=== PATIENT | female | born 1990 | race Caucasian/White ===

== ENCOUNTER 2017-07-04 14:02 | Emergency (ER) | payer BC ==
[2017-07-04] MEDS ORDERED: IPRATROPIUM/ALBUTEROL 0.5-2.5 MG/3 ML AMPUL NEB ONE ×2 (16:25→17:21)
--- NOTE | 2017-07-04 17:09 | RADIOLOGY REPORT (SQ) ---
EXAM DESCRIPTION: CHEST PA/LAT COMPLETED DATE/TIME: 07/04/2017 5:00 pm REASON FOR STUDY: cough x 2 weeks with chills COMPARISON: None. EXAM PARAMETERS: NUMBER OF VIEWS: two views TECHNIQUE: Digital Frontal and Lateral radiographic views of the chest acquired. RADIATION DOSE: NA LIMITATIONS: none FINDINGS: LUNGS AND PLEURA: No opacities, masses or pneumothorax. No pleural effusion. MEDIASTINUM AND HILAR STRUCTURES: No masses or contour abnormalities. HEART AND VASCULAR STRUCTURES: Heart normal size. No evidence for failure. BONES: No acute findings. HARDWARE: None in the chest. OTHER: No other significant finding. IMPRESSION: NO SIGNIFICANT RADIOGRAPHIC FINDING IN THE CHEST. TECHNICAL DOCUMENTATION: JOB ID: [id number] [employer]- All Rights Reserved
[2017-07-04] MEDS ORDERED: METHYLPREDNISOLONE INJ 125 MG/2 ML SDV IV ONE (17:21)
--- NOTE | 2017-07-04 17:31 | ER Document Report ---
ED General - General Chief Complaint: Cough Stated Complaint: COUGH,WHEEZING,SHORTNESS OF BREATH Time Seen by Provider: 07/04/17 15:54 Mode of Arrival: Ambulatory Information source: Patient TRAVEL OUTSIDE OF THE [place] IN LAST 30 DAYS: No - HPI Notes: 26-year-old female presents today with complaints of cough, nasal congestion, head pain, difficulty breathing for approximately 2 weeks. Denies fevers, reports chills. Denies any cp, sob, n/v/d, abd pain, dysuria and hematuria. no otc meds tried. denies fevers and chills. eating and drinking ok. dry cough. denies any rashes. Denies history of asthma, but has known she is starting to wheeze. Wheezing is becoming worse. nothing makes better, states non-smoker. Eating and drinking without issues. - Related Data Allergies/Adverse Reactions: No Known Allergies Allergy (Verified 07/04/17 14:04) Past Medical History - General Information source: Patient - Social History Smoking Status: Never Smoker Chew tobacco use (# tins/day): No Frequency of alcohol use: Occasional Drug Abuse: None Family History: Reviewed & Not Pertinent Patient has suicidal ideation: No Patient has homicidal ideation: No Renal/ Medical History: Denies: Hx Peritoneal Dialysis Skin Medical History: Denies Hx MRSA Infectious Medical History: Denies: Hx HIV Past Surgical History: Reports: Hx Section - 1 - Immunizations Immunizations up to date: Yes Hx Diphtheria, Pertussis, Tetanus Vaccination: Yes - 2010 Review of Systems - Review of Systems Constitutional: See HPI EENT: See HPI Cardiovascular: No symptoms reported Respiratory: See HPI Gastrointestinal: No symptoms reported Genitourinary: No symptoms reported Musculoskeletal: No symptoms reported Skin: No symptoms reported Neurological/Psychological: No symptoms reported -: Yes All other systems reviewed and negative Physical Exam - Vital signs Vitals: Temp Pulse Resp BP Pulse Ox 98.1 F 65 20 118/70 99 07/04/17 14:21 07/04/17 14:21 07/04/17 14:21 07/04/17 14:21 07/04/17 14:21 Interpretation: Normal - Notes Notes: PHYSICAL EXAMINATION: GENERAL: Well-appearing, well-nourished and in no acute distress. HEAD: Atraumatic, normocephalic. EYES: Pupils equal round and reactive to light, extraocular movements intact, conjunctiva are normal. ENT: Nares patent, oropharynx clear without exudates. Moist mucous membranes. NECK: : tympanic membranes are normal appearing with pearly color, normal- appearing landmarks and normal light reflex. Hearing is grossly intact. noted maxillary tenderness. The nasal mucosa is moist. The septum is midline. There is no evidence of septal hematoma. The turbinates are without abnormality. No obvious abnormalities to the lips. The teeth are unremarkable. The gingivae are without any obvious evidence of infection. The oral mucosa is moist and pink. There are no obvious masses to the hard or soft palate. The uvula is midline. The salivary glands appear unremarkable. The tongue is midline. The posterior pharynx is with erythema but without exudate. The tonsils are normal appearing . wheezes diffusely. rhinorrhea, nasal congestion, allergic shiners bilaterally LUNGS: Breath sounds clear to auscultation bilaterally and equal. No wheezes rales or rhonchi. HEART: Regular rate and rhythm without murmurs ABDOMEN: Soft, nontender, nondistended abdomen. No guarding, no rebound. No masses appreciated. Female : deferred Musculoskeletal: Normal range of motion, no pitting or edema. No cyanosis. NEUROLOGICAL: Cranial nerves grossly intact. Normal speech, normal gait. Normal sensory, motor exams PSYCH: Normal mood, normal affect. SKIN: Warm, Dry, normal turgor, no rashes or lesions noted. Course - Re-evaluation Re-evalutation: Rechecked the patient who is resting comfortably. On re-exam, patient is symptomatically improved. Discussed the results of the labs/radiology as well as the diagnosis at great length. cxr negative for any acute disease. Discussed the need to return to the ER for any new or worsening sx. Patient understands to take the Rx as directed. All questions answered. Patient comfortable with the decision to go home. 07/04/17 17:43 - Vital Signs Vital signs: Temp Pulse Resp BP Pulse Ox 98.1 F 65 20 118/70 99 07/04/17 14:21 07/04/17 14:21 07/04/17 14:21 07/04/17 14:21 07/04/17 14:21 Discharge - Discharge Clinical Impression: Acute bacterial sinusitis, Cough Condition: Good Disposition: HOME, SELF-CARE Instructions: Sinusitis ([facility]), Cough Suppressant & Expectorant Medications Additional Instructions: Sinusitis You have sinusitis, an infection of the sinus cavities of the face. The sinuses are air-filled chambers which open into the inside of the nose. Bacteria and pus fill a sinus, causing pain, drainage, and fever. Sinusitis is treated with antibiotics. Often, expectorants (to thin the sinus mucous) or decongestants (to reduce swelling) are prescribed as well. Healing requires seven to 10 days. Avoid chemical fumes, pollens, dusts, and smoke (especially cigarette smoke ). Keep the air humidified in your bedroom and work area and take plenty of liquids by mouth. This condition can be serious if the infection spreads. If your symptoms worsen, or if you develop severe headache, high fever, stiff neck, or a rash, you must call the doctor or return for re-evaluation. Bronchitis You have acute bronchitis. This disease is an infection or inflammation of the air passageways in your lungs. Symptoms usually include cough, low grade fever, shortness of breath, and wheezing. The cough usually persists for a couple of weeks. Most cases of bronchitis get better without antibiotics. We prescribe antibiotics when we believe bacteria are damaging your airways, or if there's high risk the bronchitis will worsen into pneumonia. Increase your fluid intake. A cool mist humidifier may make your lungs more comfortable. An expectorant (cough medicine that loosens phlegm) can help. If you smoke, STOP!!! Recovery from bronchitis can be somewhat slow, but you should see improvement within a day or two. Repeated episodes of bronchitis may result in lung damage -- for example, chronic bronchitis, recurrent pneumonias, or emphysema. Call the doctor if you develop increasing fever, shortness of breath, chest pain, bloody sputum, or otherwise worsen. If you have not improved at all after several days, contact the physician.
[2017-07-04 18:14] VITALS: BP 134/65
== END 2017-07-04 18:14 | disposition home or self-care (01) ==
LOC: ER 14:02
DX: J01.80 Other acute sinusitis (principal); B96.89 Other specified bacterial agents as the cause of diseases classified elsewhere; R05 Cough; R06.2 Wheezing; R06.02 Shortness of breath; R51 Headache
CPT/HCPCS: 94640 ×2; 99284; 96374; 81025; 71046; J2930; J7620

== ENCOUNTER 2018-06-26 11:15 | Emergency (ER) | payer SELFPAY ==
[2018-06-26] MEDS ORDERED: LOPERAMIDE HCL 2 MG CAPSULE PO ONE (12:41)
[2018-06-26] MEDS ORDERED: ONDANSETRON HCL INJ/PF 4 MG/2 ML SDV IV ONE (12:41)
[2018-06-26] MEDS ORDERED: NORMAL SALINE 1000 ML 1,000 ML IV ONE (12:41)
--- NOTE | 2018-06-26 13:05 | ER Document Report ---
ED Medical Screen (RME) - General TRAVEL OUTSIDE OF THE [place] IN LAST 30 DAYS: No <TRINA SWANSON - Last Filed: 06/26/18 13:03> <GABRIELE FATIMA - Last Filed: 06/26/18 19:18> - General Chief Complaint: Vomiting/Diarrhea Stated Complaint: VOMITING Time Seen by Provider: 06/26/18 12:33 Notes: 27-year-old female who presents today with complaints of vomiting for the last 2 days with associated diarrhea. Patient states she has become lightheaded and dizzy today so she left work to come here. Patient denies any fevers, blood in her stool/vomit, abdominal pain, or sick contacts. I have greeted and performed a rapid initial assessment of this patient. A comprehensive ED assessment and evaluation of the patient, analysis of test results, and completion of the medical decision making process will be conducted by additional ED providers. Review of systems: Constitutional: Lightheadedness. Dizzy. Denies Fevers. Gastrointestinal: Vomiting. Diarrhea. Denies blood in her vomit or stool. Denies abdominal pain. PHYSICAL EXAM GENERAL: Alert, interacts well. No acute distress. HEAD: Normocephalic, atraumatic. EYES: Pupils equal, round, and reactive to light. Extraocular movements intact. ENT: Oral mucosa moist, tongue midline. NECK: Full range of motion. Supple. Trachea midline. ABDOMEN: No tenderness with palpation. LUNGS: No respiratory distress. EXTREMITIES: Moves all 4 extremities spontaneously. NEUROLOGICAL: Alert and oriented x3. Normal speech. PSYCH: Normal affect, normal mood. SKIN: Warm, dry, normal turgor. No rashes or lesions noted. (TRINA SWANSON) - Related Data Allergies/Adverse Reactions: No Known Allergies Allergy (Verified 06/26/18 11:16) Past Medical History - Social History Chew tobacco use (# tins/day): No Frequency of alcohol use: Occasional Drug Abuse: None Renal/ Medical History: Denies: Hx Peritoneal Dialysis Skin Medical History: Denies Hx MRSA Infectious Medical History: Denies: Hx HIV Past Surgical History: Reports: Hx Section - 1 - Immunizations Immunizations up to date: Yes Hx Diphtheria, Pertussis, Tetanus Vaccination: Yes - 2010 <TRINA SWANSON - Last Filed: 06/26/18 13:03> - Vital signs Vitals: Temp Pulse Resp BP Pulse Ox 98.0 F 82 16 132/79 H 98 06/26/18 11:38 06/26/18 11:38 06/26/18 11:38 06/26/18 11:38 06/26/18 11:38 Course - Laboratory Result Diagrams: 06/26/18 13:06 06/26/18 13:06 <GABRIELE FATIMA - Last Filed: 06/26/18 19:18> - Vital Signs Vital signs: Temp Pulse Resp BP Pulse Ox 97.9 F 80 16 114/71 99 06/26/18 15:14 06/26/18 15:14 06/26/18 15:14 06/26/18 15:14 06/26/18 15:14 - Laboratory Laboratory results interpreted by me: 06/26/18 13:06 WBC 11.1 H Seg Neutrophils % 86.9 H Lymphocytes % 9.6 L Monocytes % 2.8 L Absolute Neutrophils 9.7 H Doctor's Discharge <TRINA SWANSON - Last Filed: 06/26/18 13:03> <GABRIELE FATIMA - Last Filed: 06/26/18 19:18> - Discharge Clinical Impression: Nausea vomiting and diarrhea, Abdominal cramping, Elevated blood pressure reading Condition: Good Disposition: HOME, SELF-CARE Instructions: Antinausea Medication ([facility]), Intravenous (IV) Fluids ([facility]), Vomiting ([facility]) Additional Instructions: Your symptoms are likely due to a viral illness and should resolve in the next several days. You can take [id number] loperamide also known as Imodium as needed for diarrhea per box instructions. Continue to stay hydrated with plenty of solution such as Gatorade or Pedialyte. You are being prescribed Zofran to take as needed for nausea and vomiting. Please return if you develop severe abdominal pain, pass out, become unable to tolerate any oral fluids for 12 more hours, or any other symptoms that are concerning to you. Prescriptions: Famotidine [Pepcid 40 mg Tablet] 40 mg PO DAILY #7 tablet Forms: Elevated Blood Pressure
[2018-06-26 13:32] LABS: ABSOLUTE LYMPHOCYTES (AUTO) 1.1 10^3/uL (0.5-4.7); ABSOLUTE MONOCYTES (AUTO) 0.3 10^3/uL (0.1-1.4); ABSOLUTE NEUT (AUTO) 9.7 10^3/uL (1.7-8.2); BASOPHILS % (AUTO) 0.4 % (0-2); EOSINOPHILS % (AUTO) 0.3 % (0-6); HEMATOCRIT 38.8 % (36.0-47.0); HEMOGLOBIN 13.2 g/dL (12.0-15.5); LYMPHOCYTES % (AUTO) 9.6 % (13-45); MEAN CORPUSCULAR HGB CONC 34.2 g/dL (32.0-36.0); MEAN CORPUSCULAR VOLUME 85 fl (80-97); MONOCYTES % (AUTO) 2.8 % (3-13); PLATELET COUNT 288 10^3/uL (150-450); RED BLOOD COUNT 4.57 10^6/uL (3.72-5.28); SEGMENTED NEUTROPHILS % (AUTO) 86.9 % (42-78); TOTAL CELLS COUNTED % (AUTO) 100 %; WHITE BLOOD COUNT 11.1 10^3/uL (4.0-10.5)
[2018-06-26 13:49] LABS: ALANINE AMINOTRANSFERASE 27 U/L (9-52); ALBUMIN 4.7 g/dL (3.5-5.0); ALKALINE PHOSPHATASE 64 U/L (38-126); ANION GAP 7 (5-19); ASPARTATE AMINO TRANSFERASE 26 U/L (14-36); BILIRUBIN,DIRECT 0.2 mg/dL (0.0-0.4); BILIRUBIN,TOTAL 0.4 mg/dL (0.2-1.3); BLOOD UREA NITROGEN 17 mg/dL (7-20); CALCIUM 9.4 mg/dL (8.4-10.2); CARBON DIOXIDE 30 mmol/L (22-30); CHLORIDE 105 mmol/L (98-107); GLUCOSE 109 mg/dL (75-110); POTASSIUM 4.6 mmol/L (3.6-5.0); SODIUM 142.4 mmol/L (137-145); TOTAL PROTEIN 7.5 g/dL (6.3-8.2)
[2018-06-26] MEDS ORDERED: ONDANSETRON ODT 4 MG TAB (6 TAB/ER DISP) PO PRN (14:51)
--- NOTE | 2018-06-26 14:52 | ER Document Report ---
ED General - General Chief Complaint: Vomiting/Diarrhea Stated Complaint: VOMITING Time Seen by Provider: 06/26/18 12:33 Mode of Arrival: Ambulatory Information source: Patient, [facility] Records Notes: 27-year-old female with no reported past medical history presents with complaint of nausea, vomiting and diarrhea that started 2 days prior to arrival. Patient states that she has had 4-5 episodes of nonbloody a day. She also admits to vomiting with any food intake. She denies fever, chills, chest pain, shortness of breath, dysuria, hematuria, vaginal discharge. She denies sick contacts. S he denies recent travel, antibiotic use. TRAVEL OUTSIDE OF THE [place] IN LAST 30 DAYS: No - HPI Onset: Yesterday Onset/Duration: Gradual, Intermittent, Persistent Quality of pain: Cramping Severity: Mild Associated symptoms: Diarrhea, Nausea, Vomiting. denies: Chest pain, Fever, Shortness of breath Exacerbated by: Food Relieved by: Denies Similar symptoms previously: No Recently seen / treated by doctor: No - Related Data Allergies/Adverse Reactions: No Known Allergies Allergy (Verified 06/26/18 11:16) Past Medical History - General Information source: Patient, [facility] Records - Social History Smoking Status: Never Smoker Chew tobacco use (# tins/day): No Frequency of alcohol use: Occasional Drug Abuse: None Lives with: Spouse/Significant other Family History: Reviewed & Not Pertinent Patient has suicidal ideation: No Patient has homicidal ideation: No - Medical History Medical History: Negative Renal/ Medical History: Denies: Hx Peritoneal Dialysis Skin Medical History: Denies Hx MRSA Infectious Medical History: Denies: Hx HIV Past Surgical History: Reports: Hx Section - 1 - Immunizations Immunizations up to date: Yes Hx Diphtheria, Pertussis, Tetanus Vaccination: Yes - 2010 Review of Systems - Review of Systems Notes: REVIEW OF SYSTEMS: CONSTITUTIONAL : Denies fever, chills, or sweats. Denies recent illness. Denies weight loss, recent hospitalizations. EENT: Denies visual changes, eye pain. Denies sore throat, oral lesions, difficulty swallowing. CARDIOVASCULAR: Denies chest pain. Denies palpitations. Denies lower extremity edema. RESPIRATORY: Denies cough. Denies shortness of breath, wheezing. GASTROINTESTINAL: Denies abdominal distention. Denies blood in vomitus, stools, or per rectum. Denies black, tarry stools. Denies constipation. GENITOURINARY: Denies difficulty urinating, painful urination, frequency, blood in urine, or vaginal discharge. MUSCULOSKELETAL: Denies back or neck pain or stiffness. Denies joint pain or swelling. SKIN: Denies rash, lesions or sores. HEMATOLOGIC : Denies easy bruising or bleeding. LYMPHATIC: Denies swollen glands. NEUROLOGICAL: Denies confusion or altered mental status. Denies loss of consciousness. Denies dizziness or lightheadedness. Denies headache. Denies weakness or paralysis. Denies problems difficulty with ambulation, slurred speech. Denies sensory loss, numbness, or tingling. Denies seizures. PSYCHIATRIC: Denies anxiety or stress. Denies depression, suicidal ideation, or homicidal ideation. Denies visual or auditory hallucinations. Physical Exam - Vital signs Vitals: Temp Pulse Resp BP Pulse Ox 98.0 F 82 16 132/79 H 98 06/26/18 11:38 06/26/18 11:38 06/26/18 11:38 06/26/18 11:38 06/26/18 11:38 - Notes Notes: PHYSICAL EXAMINATION: GENERAL: Well-appearing, well-nourished and in no acute distress. HEAD: Atraumatic, normocephalic. EYES: Pupils equal round and reactive to light, extraocular movements intact, conjunctiva are normal. ENT: Nares patent, oropharynx clear without exudates. Moist mucous membranes. NECK: Normal range of motion, supple without lymphadenopathy LUNGS: Breath sounds clear to auscultation bilaterally and equal. No wheezes rales or rhonchi. HEART: Regular rate and rhythm without murmurs ABDOMEN: Soft, nontender, nondistended abdomen. No guarding, no rebound. No masses appreciated. Female : deferred Musculoskeletal: Normal range of motion, no pitting or edema. No cyanosis. NEUROLOGICAL: Cranial nerves grossly intact. Normal speech, normal gait. Normal sensory, motor exams PSYCH: Normal mood, normal affect. SKIN: Warm, Dry, normal turgor, no rashes or lesions noted. Course - Re-evaluation Re-evalutation: Laboratory 06/26/18 06/26/18 06/26/18 13:06 13:06 13:06 WBC 11.1 H RBC 4.57 Hgb 13.2 Hct 38.8 MCV 85 MCH 29.0 MCHC 34.2 RDW 13.0 Plt Count 288 Seg Neutrophils % 86.9 H Lymphocytes % 9.6 L Monocytes % 2.8 L Eosinophils % 0.3 Basophils % 0.4 Absolute Neutrophils 9.7 H Absolute Lymphocytes 1.1 Absolute Monocytes 0.3 Absolute Eosinophils 0.0 Absolute Basophils 0.0 Sodium 142.4 Potassium 4.6 Chloride 105 Carbon Dioxide 30 Anion Gap 7 BUN 17 Creatinine 0.56 Est GFR ( Amer) > 60 Est GFR (Non-Af Amer) > 60 Glucose 109 Calcium 9.4 Total Bilirubin 0.4 Direct Bilirubin 0.2 Neonat Total Bilirubin Not Reportable Neonat Direct Bilirubin Not Reportable Neonat Indirect Bili Not Reportable AST 26 ALT 27 Alkaline Phosphatase 64 Total Protein 7.5 Albumin 4.7 Lipase 184.0 Serum HCG, Qual NEGATIVE Temp Pulse Resp BP Pulse Ox 98.0 F 82 16 132/79 H 98 06/26/18 11:38 06/26/18 11:38 06/26/18 11:38 06/26/18 11:38 06/26/18 11:38 06/26/18 14:48 27-year-old female presented with complaint of nausea vomiting and diarrhea that started 2 days ago. Denies any focal abdominal pain but does admit to some generalized cramping before she has a bowel movement. Patient did receive IV fluids, Zofran prior to my exam. She states that she is feeling much better. She has been able to tolerate fluids. Patient will be provided a Zofran dispense pack to go home since she is concerned that she she will not be able to afford it due to lack of insurance. CBC, CMP, lipase and hCG are unremarkable. Presentation of an overall well-appearing patient in no acute distress with complaints of nausea, vomiting, diarrhea. This is consistent with likely viral gastroenteritis. Patient has no abdominal tenderness on exam and specifically no tenderness in the RLQ, LLQ, RUQ. Overall well hydrated on exam. Able to tolerate oral intake here in the emergency department. Low clinical suspicion for any acute life-threatening etiology based on exam and history including acute cholecystitis, SBO, appendicitis, nephrolithiasis, or pylonephritis. CMP without evidence of acute hepatitis or significant dehydration. Will plan for discharge at this time with return precautions and followup recommendations. Patient was evaluated and treated as appropriate for the patient's presenting symptoms and complaint, with consideration of any critical or life threatening conditions that may be associated with their obtained history and exam as noted above. All results were discussed with patient . Patient provided the opportunity to ask questions, and express concerns. Patient was educated on treatments based on their presumed diagnosis as noted above. At this time we will discharge the patient with return precautions and follow-up recommendations. Verbal discharge instructions given a the bedside. Medication warnings reviewed. Patient is in agreement with this plan and has verbalized understanding of return precautions. After careful consideration I feel that that patient can be safely discharged from the emergency department, they were advised to followup with a primary care physician in 2-3 days. Dictation on this chart was performed using voice recognition software and may result in unintended grammatical, spelling, syntax or errors. 06/26/18 14:54 - Vital Signs Vital signs: Temp Pulse Resp BP Pulse Ox 98.0 F 82 16 132/79 H 98 06/26/18 11:38 06/26/18 11:38 06/26/18 11:38 06/26/18 11:38 06/26/18 11:38 - Laboratory Result Diagrams: 06/26/18 13:06 06/26/18 13:06 Laboratory results interpreted by me: 06/26/18 13:06 WBC 11.1 H Seg Neutrophils % 86.9 H Lymphocytes % 9.6 L Monocytes % 2.8 L Absolute Neutrophils 9.7 H Discharge - Discharge Clinical Impression: Nausea vomiting and diarrhea, Abdominal cramping, Elevated blood pressure reading Condition: Good Disposition: HOME, SELF-CARE Instructions: Antinausea Medication ([facility]), Intravenous (IV) Fluids ([facility]), Vomiting ([facility]) Additional Instructions: Your symptoms are likely due to a viral illness and should resolve in the next several days. You can take [id number] loperamide also known as Imodium as needed for diarrhea per box instructions. Continue to stay hydrated with plenty of solution such as Gatorade or Pedialyte. You are being prescribed Zofran to take as needed for nausea and vomiting. Please return if you develop severe abdominal pain, pass out, become unable to tolerate any oral fluids for 12 more hours, or any other symptoms that are concerning to you. Prescriptions: Famotidine [Pepcid 40 mg Tablet] 40 mg PO DAILY #7 tablet Forms: Elevated Blood Pressure
[2018-06-26 15:16] VITALS: BP 114/71
== END 2018-06-26 15:13 | disposition home or self-care (01) ==
LOC: ER 11:15
DX: R19.7 Diarrhea, unspecified (principal); R11.2 Nausea with vomiting, unspecified; R10.9 Unspecified abdominal pain; R03.0 Elevated blood-pressure reading, without diagnosis of hypertension
CPT/HCPCS: 99284; 96361; 96374; 36415; 83690; 84703; 85025; 80053; J2405; J7030

== ENCOUNTER 2018-11-13 09:12 | Emergency (ER) | payer SELFPAY ==
--- NOTE | 2018-11-13 09:26 | ER Document Report ---
ED Medical Screen (RME) - General Chief Complaint: Abdominal Pain Stated Complaint: ABDOMINAL PAIN Time Seen by Provider: 11/13/18 09:18 Mode of Arrival: Ambulatory Information source: Patient Notes: Patient presents to the emergency department with right-sided pain since Sunday. Reports the pain is getting worse. Denies history of kidney stones. Denies pain with void. Reports she vomited once. Denies other symptoms such as fever vomiting diarrhea. Denies recent trauma/strain. Reports her side feels warm to her. Also reports she did not have her menses for 2 months and then rec ently started on November 08. She is taken several home tests which were all negative. Right side tender to palpation. I have greeted and performed a rapid initial assessment of this patient. A comprehensive ED assessment and evaluation of the patient, analysis of test results and completion of the medical decision making process will be conducted by additional ED providers. Dictation of this chart was performed using voice recognition software; therefore, there may be some unintended grammatical errors. TRAVEL OUTSIDE OF THE [place] IN LAST 30 DAYS: No - Related Data Allergies/Adverse Reactions: No Known Allergies Allergy (Verified 11/13/18 09:14) Past Medical History Renal/ Medical History: Denies: Hx Peritoneal Dialysis Skin Medical History: Denies Hx MRSA Infectious Medical History: Denies: Hx HIV Past Surgical History: Reports: Hx Section - 1 - Immunizations Immunizations up to date: Yes Hx Diphtheria, Pertussis, Tetanus Vaccination: Yes - 2010 Physical Exam - Vital signs Vitals: Temp Pulse Resp BP Pulse Ox 98.7 F 84 16 115/63 97 11/13/18 09:17 11/13/18 09:17 11/13/18 09:17 11/13/18 09:17 11/13/18 09:17 Course - Vital Signs Vital signs: Temp Pulse Resp BP Pulse Ox 98.7 F 84 16 115/63 97 11/13/18 09:17 11/13/18 09:17 11/13/18 09:17 11/13/18 09:17 11/13/18 09:17
[2018-11-13 09:43] LABS: ABSOLUTE EOSINOPHILS # (AUTO) 0.1 10^3/uL (0.0-0.6); ABSOLUTE MONOCYTES (AUTO) 0.5 10^3/uL (0.1-1.4); ABSOLUTE NEUT (AUTO) 3.6 10^3/uL (1.7-8.2); BASOPHILS % (AUTO) 0.7 % (0-2); EOSINOPHILS % (AUTO) 1.9 % (0-6); HEMATOCRIT 38.6 % (36.0-47.0); HEMOGLOBIN 13.2 g/dL (12.0-15.5); LYMPHOCYTES % (AUTO) 31.9 % (13-45); MEAN CORPUSCULAR HEMOGLOBIN 28.7 pg (27.0-33.4); MEAN CORPUSCULAR HGB CONC 34.2 g/dL (32.0-36.0); MEAN CORPUSCULAR VOLUME 84 fl (80-97); MONOCYTES % (AUTO) 8.5 % (3-13); PLATELET COUNT 285 10^3/uL (150-450); RED CELL DISTRIBUTION WIDTH 12.7 % (11.5-14.0); TOTAL CELLS COUNTED % (AUTO) 100 %; WHITE BLOOD COUNT 6.4 10^3/uL (4.0-10.5)
[2018-11-13 10:01] LABS: APPEARANCE,URINE SLIGHTLY-CLOUDY; BILIRUBIN,URINE NEGATIVE (NEGATIVE); COLOR,URINE YELLOW; GLUCOSE, URINE NEGATIVE (NEGATIVE); KETONES,URINE NEGATIVE (NEGATIVE); LEUKOCYTE ESTERASE,URINE NEGATIVE (NEGATIVE); NITRITE,URINE NEGATIVE (NEGATIVE); PROTEIN,URINE NEGATIVE (NEGATIVE); URINE SPECIFIC GRAVITY 1.024; UROBILINOGEN,URINE NEGATIVE mg/dL (<2.0)
[2018-11-13 10:12] LABS: ALANINE AMINOTRANSFERASE 26 U/L (9-52); ALBUMIN 4.3 g/dL (3.5-5.0); ALKALINE PHOSPHATASE 43 U/L (38-126); ANION GAP 7 (5-19); ASPARTATE AMINO TRANSFERASE 22 U/L (14-36); BILIRUBIN,DIRECT 0.2 mg/dL (0.0-0.4); BILIRUBIN,TOTAL 0.4 mg/dL (0.2-1.3); BLOOD UREA NITROGEN 16 mg/dL (7-20); CALCIUM 9.5 mg/dL (8.4-10.2); CARBON DIOXIDE 31 mmol/L (22-30); CHLORIDE 103 mmol/L (98-107); GLUCOSE 74 mg/dL (75-110); LIPASE 231.3 U/L (23-300); POTASSIUM 3.8 mmol/L (3.6-5.0); SODIUM 141.4 mmol/L (137-145); TOTAL PROTEIN 6.8 g/dL (6.3-8.2)
--- NOTE | 2018-11-13 10:27 | ER Document Report ---
Entered by TRINA SWANSON SCRIBE 11/13/18 0946 Acting as scribe for:GIFTY BROOKS MD ED General - General Chief Complaint: Abdominal Pain Stated Complaint: ABDOMINAL PAIN Time Seen by Provider: 11/13/18 09:18 Mode of Arrival: Ambulatory Information source: Patient Notes: 28-year-old female who presents to the emergency department today with complaints of a x5-day history of right-sided abdominal pain. Patient states that she noticed the pain when lying down to go to bed x5 days ago. Patient states the pain comes and goes, but has increased in severity since onset. Patient indicates that the pain radiates around to her right lateral abdomen. Patient states she cannot remember what type of food she had prior to the pain beginning. Patient states her last menstrual period was on 11/07/2018, stating it was "2 months late". TRAVEL OUTSIDE OF THE [place] IN LAST 30 DAYS: No - Related Data Allergies/Adverse Reactions: No Known Allergies Allergy (Verified 11/13/18 09:14) Past Medical History - General Information source: Patient - Social History Smoking Status: Smoker,Current Status Unk Cigarette use (# per day): Yes Chew tobacco use (# tins/day): No Frequency of alcohol use: Occasional Drug Abuse: None Lives with: Family Family History: Reviewed & Not Pertinent Patient has suicidal ideation: No Patient has homicidal ideation: No Past Surgical History: Reports: Hx Section - 1 - Immunizations Immunizations up to date: Yes Hx Diphtheria, Pertussis, Tetanus Vaccination: Yes - 2010 Review of Systems - Review of Systems Constitutional: No symptoms reported EENT: No symptoms reported Cardiovascular: No symptoms reported Respiratory: No symptoms reported Gastrointestinal: See HPI, Abdominal pain Genitourinary: No symptoms reported Female Genitourinary: See HPI, Last menstrual period - 11/07/2018 "x2 months late" Musculoskeletal: No symptoms reported Skin: No symptoms reported Hematologic/Lymphatic: No symptoms reported Neurological/Psychological: No symptoms reported -: Yes All other systems reviewed and negative Physical Exam - Vital signs Vitals: Temp Pulse Resp BP Pulse Ox 98.7 F 84 16 115/63 97 11/13/18 09:17 11/13/18 09:17 11/13/18 09:17 11/13/18 09:17 11/13/18 09:17 - Notes Notes: Physical Exam: General: Alert, appears well. HEENT: Normocephalic. Atraumatic. PERRL. Extraocular movements intact. Oropharynx clear. Neck: Supple. Non-tender. Respiratory: No respiratory distress. Clear and equal breath sounds bilaterally. Cardiovascular: Regular rate and rhythm. Abdominal: Obese. Very minimal right sided abdominal tenderness inferior to the rib margin laterally. No overlying rash. No distension. Normal Bowel Sounds. Back: Non-tender. No deformity or step off. NO CVA tenderness to percussion. Extremities: Moves all four extremities. Upper extremities: Normal inspection. Normal ROM. Lower extremities: Normal inspection. No edema. Normal ROM. Neurological: Normal cognition. AAOx4. Normal speech. Psychological: Normal affect. Normal Mood. Skin: Warm. Dry. Normal color. Course - Re-evaluation Re-evalutation: 11/13/18 12:35 Patient's lab work is unremarkable. Gallbladder ultrasound is unremarkable. CT scan abdomen pelvis with IV contrast unremarkable. There is no clear ex planation for the patient's right upper quadrant abdominal pain other than musculoskeletal. - Vital Signs Vital signs: Temp Pulse Resp BP Pulse Ox 98.7 F 84 16 115/63 97 11/13/18 09:17 11/13/18 09:17 11/13/18 09:17 11/13/18 09:17 11/13/18 09:17 - Laboratory Result Diagrams: 11/13/18 09:30 11/13/18 09:30 Laboratory results interpreted by me: 11/13/18 11/13/18 09:30 09:30 Carbon Dioxide 31 H Glucose 74 L Urine Blood SMALL H - Diagnostic Test Radiology reviewed: Image reviewed, Reports reviewed - Gallbladder ultrasound was unremarkable. CT scan abdomen pelvis with IV contrast is unremarkable. Discharge - Discharge Clinical Impression: Abdominal pain Qualifiers: Abdominal location: right upper quadrant Qualified Code(s): R10.11 - Right upper quadrant pain Nausea and vomiting Qualifiers: Vomiting type: unspecified Vomiting Intractability: non-intractable Qualified Code(s): R11.2 - Nausea with vomiting, unspecified Condition: Stable Disposition: HOME, SELF-CARE Additional Instructions: Abdominal Pain There are many causes of abdominal pain. Pain can mean a serious problem requiring surgery (such as appendicitis). It can also be an innocent problem that goes away on its own (such as a viral infection). Often, time must pass to determine the cause of pain. The physician does not feel that hospitalization is necessary, at present. Things may change within the next 24 hours. Call the doctor or come back for re- examination if any problems occur, such as: (1) Pain that becomes more severe, steady, or becomes concentrated in one specific area. Also, pain that is more severe with movement or coughing. (2) Vomiting that persists or becomes more frequent. (3) Blood in the vomitus, urine, or bowel movements. Blood in the stool may have a tarry or black appearance. (4) Shaking chills or fever greater than 100 degrees F. (5) The abdomen becomes more distended or swollen. (6) Bowel movements cease. (7) Failure to improve as expected. Your lab work, gallbladder ultrasound, and CT scan of the abdomen and pelvis with IV contrast were all unremarkable. The most likely cause of your discomfort would be a muscle strain from a week or more ago.. Occasionally patients will have pain coming from the gallbladder due to poor ga llbladder function. This can be diagnosed with a special nuclear medicine scan called a BJ cortez. For now you should drink plenty of fluids and rest. Take ibuprofen and Tylenol for pain as needed. Follow-up with a local medical doctor for further evaluation if not improving. RETURN TO THE EMERGENCY ROOM IF ANY NEW OR WORSENING SYMPTOMS. Scribe Attestation: 11/13/18 09:55 I personally performed the services described in the documentation, reviewed and edited the documentation which was dictated to the scribe in my presence, and it accurately records my words and actions. 11/13/18 0955 I personally performed the services described in the documentation, reviewed and edited the documentation which was dictated to the scribe in my presence, and it accurately records my words and actions.
--- NOTE | 2018-11-13 10:38 | RADIOLOGY REPORT (SQ) ---
EXAM DESCRIPTION: U/S ABDOMEN LIMITED W/O DOP COMPLETED DATE/TIME: 11/13/2018 10:26 am REASON FOR STUDY: right side pain COMPARISON: None. TECHNIQUE: Dynamic and static grayscale images acquired of the abdomen and recorded on PACS. Additio nal selected color Doppler and spectral images recorded. LIMITATIONS: Bowel gas obscures some organs. FINDINGS: PANCREAS: Unremarkable visualized aspects. LIVER: No masses. Echotexture normal. LIVER VASCULATURE: Normal directional flow of the main portal vein and hepatic veins. GALLBLADDER: No stones. Normal wall thickness. No pericholecystic fluid. ULTRASOUND-DETECTED NOLAND'S SIGN: Negative. INTRAHEPATIC DUCTS AND COMMON DUCT: CBD and intrahepatic ducts normal caliber. No filling defects. INFERIOR VENA CAVA: Normal flow. AORTA: No aneurysm. RIGHT KIDNEY: Normal size measuring 8.8 cm. Normal echogenicity. No solid or suspicious masses. No h ydronephrosis. No calcifications. PERITONEAL AND RIGHT PLEURAL SPACE: No ascites or effusions. OTHER: No other significant findings. IMPRESSION: NORMAL RIGHT UPPER QUADRANT ULTRASOUND. TECHNICAL DOCUMENTATION: JOB ID: [id number] [employer]- All Rights Reserved Reading location - IP/workstation name: [email or web address]
--- NOTE | 2018-11-13 12:01 | RADIOLOGY REPORT (SQ) ---
EXAM DESCRIPTION: CT ABD/PELVIS WITH IV ONLY COMPLETED DATE/TIME: 11/13/2018 11:47 am REASON FOR STUDY: Right abdomen and flank pain x6 days COMPARISON: 11/13/2018 TECHNIQUE: CT scan of the abdomen and pelvis performed using helical scanning technique with dynamic intravenous contrast injection. No oral contrast. Images reviewed with lung, soft tissue, and bone windows. Reconstructed coronal and sagittal MPR images reviewed. Delayed images for evaluation of the urinary system also acquired. All images stored on PACS. All CT scanners at this facility use dose modulation, iterative reconstruction, and/or weight based d osing when appropriate to reduce radiation dose to as low as reasonably achievable (ALARA). [facility]: Dose Right [facility]: CareDose [facility]: Dose Right [facility]: Teradose 4D [facility]: Zenbox CONTRAST TYPE AND DOSE: contrast/concentration: Isovue 350.00 mg/ml; Total Contrast Delivered: 95.0 ml; Total Saline Delivered: 70.0 ml RENAL FUNCTION: None required. The patient is less than 50 years old. RADIATION DOSE: CT Rad equipment meets quality standard of care and radiation dose reduction techniq ues were employed. CTDIvol: NaN - NaN mGy. DLP: 0 mGy-cm.. LIMITATIONS: None. FINDINGS: LOWER CHEST: No significant findings. No nodules or infiltrates. LIVER: Normal size. Hypoattenuation along the falciform ligament likely from accessory venous draina ge. No masses. No dilated ducts. SPLEEN: Normal size. No focal lesions. Splenule noted. PANCREAS: No masses. No significant calcifications. No adjacent inflammation or peripancreatic fluid collections. Pancreatic duct not dilated. GALLBLADDER: No identified stones by CT criteria. No inflammatory changes to suggest cholecystitis. ADRENAL GLANDS: No significant masses or asymmetry. RIGHT KIDNEY AND URETER: No solid masses. No significant calcifications. No hydronephrosis or hyd roureter. LEFT KIDNEY AND URETER: No solid masses. No significant calcifications. No hydronephrosis or hydr oureter. AORTA AND VESSELS: No aneurysm. No dissection. Renal arteries, SMA, celiac without stenosis. RETROPERITONEUM: No retroperitoneal adenopathy, hemorrhage or masses. BOWEL AND PERITONEAL CAVITY: No masses or inflammatory changes. No free fluid or peritoneal masses. APPENDIX: Normal. PELVIS: Unremarkable urinary bladder. Feminine hygiene product within the vaginal canal. 3 cm hypod ense lesion within the left adnexa, likely functional cyst. No adenopathy. ABDOMINAL WALL: No masses. No hernias. BONES: No acute bony abnormality. Bilateral L5 pars defects. No suspicious osseous lesions. OTHER: Obesity. IMPRESSION: 1. No evidence of acute intra-abdominal/ pelvic process. Nephrolithiasis or obstructiv e uropathy. Normal appendix. 2. Bilateral L5 pars defects. TECHNICAL DOCUMENTATION: JOB ID: [id number] Quality ID # [id number]: Final reports with documentation of one or more dose reduction techniques (e.g., Au tomated exposure control, adjustment of the mA and/or kV according to patient size, use of iterative reconstruction technique) 2010 [employer]- All Rights Reserved Reading location - IP/workstation name: [email or web address]
[2018-11-13 12:53] VITALS: BP 123/82
== END 2018-11-13 12:51 | disposition home or self-care (01) ==
LOC: ER 09:12
DX: R10.11 Right upper quadrant pain (principal); R11.2 Nausea with vomiting, unspecified; R10.9 Unspecified abdominal pain; F17.210 Nicotine dependence, cigarettes, uncomplicated
CPT/HCPCS: 36415; 74177; 76705; 80053; 81001; 83690; 84703; 85025; 99284

== ENCOUNTER 2019-09-19 07:49 | Emergency (ER) | payer SELFPAY ==
[2019-09-19] MEDS ORDERED: ONDANSETRON HCL INJ/PF 4 MG/2 ML SDV IV ONE (08:29)
[2019-09-19] MEDS ORDERED: NORMAL SALINE 1000 ML 1,000 ML IV PRN (08:29)
[2019-09-19 08:42] LABS: HEMATOCRIT 36.3 % (36.0-47.0); HEMOGLOBIN 12.6 g/dL (12.0-15.5); MEAN CORPUSCULAR HGB CONC 34.7 g/dL (32.0-36.0); MEAN CORPUSCULAR VOLUME 87 fl (80-97); PLATELET COUNT 235 10^3/uL (150-450); WHITE BLOOD COUNT 12.9 10^3/uL (4.0-10.5)
[2019-09-19] MEDS ORDERED: KETOROLAC TROMETHAMINE INJ/PF 30 MG/1 ML SDV IV ONE (08:42)
--- NOTE | 2019-09-19 08:53 | ER Document Report ---
ED General - General Chief Complaint: Vomiting/Diarrhea Stated Complaint: CHILLS,BODY ACHES,DIARRHEA Time Seen by Provider: 09/19/19 08:23 Primary Care Provider: MILAD MAGAÑA MD [ACTIVE STAFF] - Follow up as needed TRAVEL OUTSIDE OF THE [place] IN LAST 30 DAYS: No - HPI Notes: Patient is a 29-year-old female with no significant past medical history presents complaining having nausea/vomiting/diarrhea that began last night. Patient states that she does have some chills and body ache as well. She has had decreased p.o. intake. She is still urinating normally otherwise. No vaginal discharge, odor, or bleeding. Denies . Denies drug allergies. No known exposure to coronavirus or persons under investigation. Denies any headache, fever, neck pain, URI, sore throat, chest pain, palpitations, syncope, cough, shortness of breath, wheeze, dyspnea, abdominal pain, urinary retention, dysuria, hematuria, or rash. - Related Data Allergies/Adverse Reactions: No Known Allergies Allergy (Verified 09/19/19 08:06) Past Medical History - Social History Smoking Status: Never Smoker Chew tobacco use (# tins/day): No Frequency of alcohol use: Occasional Drug Abuse: None Family History: Reviewed & Not Pertinent Patient has suicidal ideation: No Patient has homicidal ideation: No Renal/ Medical History: Denies: Hx Peritoneal Dialysis Skin Medical History: Denies Hx MRSA Infectious Medical History: Denies: Hx HIV Past Surgical History: Reports: Hx Section - 1 - Immunizations Immunizations up to date: Yes Hx Diphtheria, Pertussis, Tetanus Vaccination: Yes - 2010 Review of Systems - Review of Systems -: Yes All other systems reviewed and negative Physical Exam - Vital signs Vitals: Temp Pulse Resp BP Pulse Ox 99.7 F 95 18 129/71 H 95 09/19/19 07:53 09/19/19 07:53 09/19/19 07:53 09/19/19 07:53 09/19/19 07:53 - Notes Notes: PHYSICAL EXAMINATION: GENERAL: Well-appearing, well-nourished and in no acute distress. HEAD: Atraumatic, normocephalic. EYES: Pupils equal round and reactive to light, extraocular movements intact, sclera anicteric, conjunctiva are normal. ENT: Nares patent and without discharge. oropharynx clear without exudates. No tonsilar hypertrophy or erythema. Moist mucous membranes. NECK: Normal range of motion, supple without lymphadenopathy LUNGS: Breath sounds clear to auscultation bilaterally and equal. No wheezes rales or rhonchi. HEART: Regular rate and rhythm without murmurs, rubs, gallops. ABDOMEN: Soft, nontender, nondistended abdomen. No guarding, no rebound. Normal bowel sounds present. No CVA tenderness bilaterally. Jimenez neg. No tenderness to the lower abd or at [place]. Musculoskeletal: FROM to passive/active. Strength 5+/5. Extremities: No cyanosis, clubbing, or edema b/l. Peripheral pulses 2+. Capillary refill less than 3 seconds. NEUROLOGICAL: Normal speech, normal gait. PSYCH: Normal mood, normal affect. SKIN: Warm, Dry, normal turgor, no rashes or lesions noted. Course - Re-evaluation Re-evalutation: 09/19/19 09:39 Patient is an afebrile, well-hydrated, 29-year-old female who presents with nausea/vomiting/diarrhea, suspect viral. Vitals are acceptable without sign ificant tachycardia, tachypnea, or hypoxia. PE is otherwise unremarkable. Patient's abdomen is soft nontender throughout. Labs are acceptable. Patient was given medicines and fluids. She has not had any emesis or diarrhea throughout her stay. No further work-up warranted at this time. Low arian picion/risk for acute appendicitis, bowel obstruction, acute cholecystitis, acute cholangitis, perforated diverticulitis, incarcerated hernia, pancreatitis, perforated ulcer, peritonitis, sepsis, pelvic inflammatory disease, ectopic , tubo-ovarian abscess, ovarian torsion, or other systemic emergent condition at this time. Patient is aware that her condition can change from initial presentation and she needs to monitor symptoms closely and seek medical attention if any acute changes. Conservative measures otherwise for symptoms. Recheck with your PCM in 2-3 days. Consider consult with a air conditioning insulation installer. Return to the ED with any worsening/concerning symptoms otherwise as reviewed in discharge. Patient is in agreement. - Vital Signs Vital signs: Temp Pulse Resp BP Pulse Ox 99.7 F 95 18 129/71 H 95 09/19/19 07:53 09/19/19 07:53 09/19/19 07:53 09/19/19 07:53 09/19/19 07:53 - Laboratory Result Diagrams: 09/19/19 08:23 09/19/19 08:23 Laboratory results interpreted by me: 09/19/19 09/19/19 09/19/19 08:23 08:23 08:56 WBC 12.9 H Seg Neuts % (Manual) 86 H Lymphocytes % (Manual) 7 L Abs Neuts (Manual) 11.1 H Sodium 134.9 L Glucose 129 H Urine Blood MODERATE H Urine Urobilinogen 2.0 H Discharge - Discharge Clinical Impression: Nausea vomiting and diarrhea Condition: Stable Disposition: HOME, SELF-CARE Instructions: Diarrhea, Nonspecific ([facility]), Vomiting ([facility]) Additional Instructions: Maintain adequate fluid and food intake Mecca diet (B.R.A.T.) Bananas, rice, apples, toast, etc Zofran as needed tylenol if needed Monitor for any worsening symptoms Make sure you are staying hydrated enough to urinate and have normal BM's Recheck with your PCM in 2-3 days Consider consult with Gastroenterology for ongoing/worsening symptoms Return to the ED with any worsening symptoms and/or development of fever, headache, chest pain, palpitations, syncope, shortness of breath, trouble breathing, abdominal pain, n/v/d, blood in stool/urine, weakness, or other worsening symptoms that are concerning to you. Prescriptions: Ondansetron [Zofran Odt 4 mg Tablet] 1 - 2 tab PO Q4H PRN #15 tab.rapdis PRN Reason: For Nausea/Vomiting Forms: Elevated Blood Pressure, Return to Work Referrals: MILAD MAGAÑA MD [ACTIVE STAFF] - Follow up as needed
[2019-09-19 09:10] LABS: ALBUMIN 4.2 g/dL (3.5-5.0); ALKALINE PHOSPHATASE 62 U/L (38-126); ANION GAP 11 (5-19); ASPARTATE AMINO TRANSFERASE 27 U/L (14-36); BILIRUBIN,DIRECT 0.2 mg/dL (0.0-0.4); BILIRUBIN,TOTAL 0.5 mg/dL (0.2-1.3); BLOOD UREA NITROGEN 14 mg/dL (7-20); CALCIUM 8.6 mg/dL (8.4-10.2); CARBON DIOXIDE 26 mmol/L (22-30); CHLORIDE 98 mmol/L (98-107); GLUCOSE 129 mg/dL (75-110); POTASSIUM 3.8 mmol/L (3.6-5.0)
[2019-09-19 09:17] LABS: APPEARANCE,URINE CLEAR; BILIRUBIN,URINE NEGATIVE (NEGATIVE); COLOR,URINE YELLOW; GLUCOSE, URINE NEGATIVE (NEGATIVE); KETONES,URINE NEGATIVE (NEGATIVE); PROTEIN,URINE NEGATIVE (NEGATIVE); URINE SPECIFIC GRAVITY 1.013
[2019-09-19 09:18] LABS: A TYPE INFLUENZA AG NEGATIVE (NEGATIVE); B INFLUENZA AG NEGATIVE (NEGATIVE)
[2019-09-19 09:20] LABS: ABSOLUTE MONOCYTES # (MANUAL) 0.8 10^3/uL (0.1-1.4); BASOPHILS % (MANUAL) 0 % (0-2); EOSINOPHILS % (MANUAL) 0 % (0-6); LYMPHOCYTES % (MANUAL) 7 % (13-45); MONOCYTES % (MANUAL) 6 % (3-13); SEGMENTED NEUTROPHILS % (MAN) 86 % (42-78); TOTAL CELLS COUNTED 100
[2019-09-19 09:29] LABS: RBC MORPHOLOGY COMMENT NORMO-CYTIC/CHROMIC
[2019-09-19 09:30] LABS: PLATELET COMMENT ADEQUATE
[2019-09-19 09:58] VITALS: BP 116/63
== END 2019-09-19 10:10 | disposition home or self-care (01) ==
LOC: ER 07:49
DX: R11.2 Nausea with vomiting, unspecified (principal); R19.7 Diarrhea, unspecified; M79.10 Myalgia, unspecified site
CPT/HCPCS: 99284; 96361; 96374; 96375; 36415; 83690; 85025; 81025; 80053; 81001; 87804; J1885; J2405; J7030

== ENCOUNTER 2020-05-12 12:20 | Outpatient (CLI) | payer MEDICAID ==
[2020-05-12 13:06] LABS: BACTERIA (WET MOUNT) 4+ BACTERIA SEEN; EPITHELIALS (WET MOUNT) 4+ EPITHELIALS SEEN; RBCS (WET MOUNT) NO RBCS SEEN; T.VAGINALIS (WET MOUNT) NO TRICHOMONAS SEEN; WBCS (WET MOUNT) 2+ WBCS SEEN; YEAST (WET MOUNT) NO YEAST SEEN
[2020-05-12 13:19] LABS: APPEARANCE,URINE CLOUDY; BILIRUBIN,URINE NEGATIVE (NEGATIVE); COLOR,URINE YELLOW; GLUCOSE, URINE NEGATIVE (NEGATIVE); KETONES,URINE NEGATIVE (NEGATIVE); LEUKOCYTE ESTERASE,URINE NEGATIVE (NEGATIVE); NITRITE,URINE NEGATIVE (NEGATIVE); PROTEIN,URINE NEGATIVE (NEGATIVE); URINE SPECIFIC GRAVITY 1.013; UROBILINOGEN,URINE NEGATIVE mg/dL (<2.0)
[2020-05-12 13:37] LABS: URINE AMPHETAMINES SCREEN NEGATIVE; URINE BARBITURATES SCREEN NEGATIVE; URINE BENZODIAZEPINES SCREEN NEGATIVE; URINE COCAINE SCREEN NEGATIVE; URINE MARIJUANA (THC) SCREEN NEGATIVE; URINE METHADONE SCREEN NEGATIVE; URINE PHENCYCLIDINE SCREEN NEGATIVE
--- NOTE | 2020-05-12 16:08 | RADIOLOGY REPORT (SQ) ---
EXAM DESCRIPTION: U/S PROFILE W/O STRESS IMAGES COMPLETED DATE/TIME: 05/12/2020 3:37 pm REASON FOR STUDY: nonreactive NST @ 33w1d COMPARISON: None. TECHNIQUE: Limited frausto-scale realtime and static images of the fetus to measure specified parameter s. LIMITATIONS: None. FINDINGS: HEART RATE: 153 beats per minute. BREATHING MOVEMENT: 2 points. MOVEMENT: 2 points. POSTURE AND TONE: 2 points. QUALITATIVE ADRIAN: 2 points. OTHER: ADRIAN is 11.5 cm. Heterogeneous attenuation posterior to the anterior positioned placenta is th ere a clinical history of abruption? This may represent prominent retroperitoneal complex. IMPRESSION: BIOPHYSICAL PROFILE: 02/06. Trimester of : Third - 28 weeks to delivery COMMENT: BREATHING MOVEMENTS: 2 POINTS: PRESENT 0 POINTS: ABSENT MOTION: 2 POINTS: PRESENT 0 POINTS: ABSENT TONE: 2 POINTS: PRESENT 0 POINTS: ABSENT AMNIOTIC FLUID VOLUME: 2 POINTS: LARGEST POCKET GREATER THAN 2 CM DEPTH. 0 POINTS: NO POCKET OF 2 CM. TECHNICAL DOCUMENTATION: JOB ID: [id number] 2010 [employer]- All Rights Reserved Reading location - IP/workstation name: [email or web address]
== END 2020-05-12 16:32 | disposition home or self-care (01) ==
LOC: LC 12:20
PROVIDERS: ATTEND Obstetrics & Gynecology
DX: O26.899 Other specified pregnancy related conditions, unspecified trimester (principal); Z3A.33 33 weeks gestation of pregnancy
CPT/HCPCS: 59025; 76819; 80307; 81001; 84112; 87210

== ENCOUNTER 2020-06-09 10:37 | Outpatient (CLI) | payer MEDICAID | END 2020-06-09 13:34 | disposition home or self-care (01) | LOC: LC 10:37 | PROVIDERS: ATTEND Obstetrics & Gynecology Gynecology | DX: O36.8130 Decreased fetal movements, third trimester, not applicable or unspecified (principal); Z3A.37 37 weeks gestation of pregnancy | CPT/HCPCS: 59025 ==

== ENCOUNTER 2020-06-11 14:45 | Outpatient (CLI) | payer MEDICAID ==
--- NOTE | 2020-06-11 16:43 | RADIOLOGY REPORT (SQ) ---
EXAM DESCRIPTION: U/S PROFILE W/O STRESS IMAGES COMPLETED DATE/TIME: 06/11/2020 4:25 pm REASON FOR STUDY: non reactive NST, needs BPP, decreased FM COMPARISON: 05/12/2020 TECHNIQUE: Limited frausto-scale realtime and static images of the fetus to measure specified parameter s. LIMITATIONS: None. FINDINGS: HEART RATE: 132 beats per minute. ADRIAN: 10.6 cm. MVP: 2 cm. BREATHING MOVEMENT: 2 points. MOVEMENT: 2 points. POSTURE AND TONE: 2 points. QUALITATIVE ADRIAN: 2 points. OTHER: No other significant finding. IMPRESSION: BIOPHYSICAL PROFILE: 02/06. Trimester of : Third - 28 weeks to delivery COMMENT: BREATHING MOVEMENTS: 2 POINTS: PRESENT 0 POINTS: ABSENT MOTION: 2 POINTS: PRESENT 0 POINTS: ABSENT TONE: 2 POINTS: PRESENT 0 POINTS: ABSENT AMNIOTIC FLUID VOLUME: 2 POINTS: LARGEST POCKET GREATER THAN 2 CM DEPTH. 0 POINTS: NO POCKET OF 2 CM. TECHNICAL DOCUMENTATION: JOB ID: [id number] 2010 [employer]- All Rights Reserved Reading location - IP/workstation name: [email or web address]
== END 2020-06-11 16:44 | disposition home or self-care (01) ==
LOC: LC 14:45
PROVIDERS: ATTEND Student in an Organized Health Care Education/Training Program
DX: O36.8130 Decreased fetal movements, third trimester, not applicable or unspecified (principal); Z3A.37 37 weeks gestation of pregnancy; Z86.19 Personal history of other infectious and parasitic diseases
CPT/HCPCS: 59025; 76819

== ENCOUNTER 2020-06-15 17:55 | Inpatient (IN) | payer OTHER, MEDICAID ==
[2020-06-15 18:48] LABS: APPEARANCE,URINE SLIGHTLY-CLOUDY; BILIRUBIN,URINE NEGATIVE (NEGATIVE); COLOR,URINE YELLOW; GLUCOSE, URINE NEGATIVE (NEGATIVE); KETONES,URINE NEGATIVE (NEGATIVE); LEUKOCYTE ESTERASE,URINE NEGATIVE (NEGATIVE); NITRITE,URINE NEGATIVE (NEGATIVE); PROTEIN,URINE 30 mg/dL (NEGATIVE); URINE SPECIFIC GRAVITY 1.021
[2020-06-15 19:07] LABS: URINE AMPHETAMINES SCREEN NEGATIVE; URINE BARBITURATES SCREEN NEGATIVE; URINE BENZODIAZEPINES SCREEN NEGATIVE; URINE COCAINE SCREEN NEGATIVE; URINE MARIJUANA (THC) SCREEN NEGATIVE; URINE METHADONE SCREEN NEGATIVE; URINE PHENCYCLIDINE SCREEN NEGATIVE
[2020-06-16] MEDS ORDERED: RINGERS SOLUTION,LACTATED 1,000 ML IV PRN ×3 (01:36→03:48)
[2020-06-16] MEDS ORDERED: ACETAMINOPHEN 1,000 MG/100 ML RTUPB IV ONE (01:46)
[2020-06-16] MEDS ORDERED: OXYTOCIN 10 UNIT/ML VIAL ONE (01:46)
[2020-06-16] MEDS ORDERED: OXYTOCIN/0.9 % SODIUM CHLORIDE 30 UNIT/500 ML RTUINJ ONE (01:46)
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
[2020-06-16 02:04] LABS: ABSOLUTE BASOPHILS # (AUTO) 0.2 10^3/uL (0.0-0.2); ABSOLUTE EOSINOPHILS # (AUTO) 0.1 10^3/uL (0.0-0.6); ABSOLUTE LYMPHOCYTES (AUTO) 2.8 10^3/uL (0.5-4.7); ABSOLUTE MONOCYTES (AUTO) 0.5 10^3/uL (0.1-1.4); ABSOLUTE NEUT (AUTO) 7.3 10^3/uL (1.7-8.2); BASOPHILS % (AUTO) 1.8 % (0-2); EOSINOPHILS % (AUTO) 0.9 % (0-6); HEMATOCRIT 34.7 % (36.0-47.0); HEMOGLOBIN 12.1 g/dL (12.0-15.5); LYMPHOCYTES % (AUTO) 25.6 % (13-45); MEAN CORPUSCULAR HEMOGLOBIN 31.2 pg (27.0-33.4); MEAN CORPUSCULAR HGB CONC 34.9 g/dL (32.0-36.0); MEAN CORPUSCULAR VOLUME 90 fl (80-97); PLATELET COUNT 208 10^3/uL (150-450); RED BLOOD COUNT 3.87 10^6/uL (3.72-5.28); SEGMENTED NEUTROPHILS % (AUTO) 66.7 % (42-78); TOTAL CELLS COUNTED % (AUTO) 100 %; WHITE BLOOD COUNT 10.9 10^3/uL (4.0-10.5)
[2020-06-16] MEDS ORDERED: CEFAZOLIN 2 GM/D5W RTU 2 GM/50 ML RTUPB IV ONE ×2 (02:10→02:20)
[2020-06-16] MEDS ORDERED: CITRIC ACID/SODIUM CITRATE ORAL SOLN 15 ML UDCUP ONE (02:19)
[2020-06-16] MEDS ORDERED: MEASLES,MUMPS&RUBELLA VACC/PF 0.5 ML VIAL SUBCUT PRN (03:48)
[2020-06-16] MEDS ORDERED: ACETAMINOPHEN 1,000 MG/100 ML RTUPB IV PRN (03:48)
[2020-06-16] MEDS ORDERED: DIPH/PERTUSS(ACELL)/TETANUS VAC/PF 0.5 ML SYR (>=10YO) IM PRN (03:48)
[2020-06-16] MEDS ORDERED: PROMETHAZINE HCL INJ 25 MG/1 ML VIAL IV PRN (03:48)
[2020-06-16] MEDS ORDERED: SIMETHICONE 80 MG TAB.CHEW PO PRN (03:48)
[2020-06-16] MEDS ORDERED: OXYTOCIN/0.9 % SODIUM CHLORIDE 30 UNIT/500 ML RTUINJ IV PRN (03:48)
[2020-06-16] MEDS ORDERED: ACETAMINOPHEN 325 MG TABLET PO PRN (03:48)
[2020-06-16] MEDS ORDERED: OXYCODONE-ACETAMINOPHEN 5-325 MG TABLET PO PRN (03:48)
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
[2020-06-16] MEDS ORDERED: HYDROMORPHONE HCL INJ/PF 2 MG/ML AMPULE ONE (04:28)
--- NOTE | 2020-06-16 05:28 | Birth Certificate Data ---
Cert Data Datetime Report Generated by [facility]: 06/16/2020 05:28 CERTIFICATE DATA Delivery Provider: Santa Corbin MD (05/12/2020 12:33:Maira Raman RN) 48a. Number of Prev Live Births: 2 (05/12/2020 12:33:ALEX Jin) 48b. Now Livin (05/12/2020 12:33:Yoli Luu RN) 48c. Live Births Now : 0 (05/12/2020 12:33:QS system process) 48d. Date of Last Live : 04/02/2014 00:00 (05/12/2020 12:33:ALEX Jin) 48e. Losses: 0 (Annotations: Data stored by [facility] on behalf of user) (05/12/2020 12:33:ALEX Jin) RISK FACTORS IN THIS 49a. Diabetes: No (05/12/2020 12:33:Herminia Bellavance, RNC) 49b. Hypertension: No (05/12/2020 12:33:Herminia Bellavance, RNC) 49c. Previous Births: 0 (05/12/2020 12:33:Yoli Luu RN) 49d. Stillborns: No (05/12/2020 12:33:Herminia Bellavance, RNC) 49d. IUGR: No (05/12/2020 12:33:Herminia Bellavance, RNC) 49e. Infertility Treatment: No (05/12/2020 12:33:Herminia Bellavance, RNC) 49f. Previous Cesareans: 2 (05/12/2020 12:33:Herminia Bellavance, RNC) Mother's Height 50b. Height Inches: 63 (06/15/2020 18:43:QS system process) Mother's Weight 51a. Pre- Weight (lbs): 180 (05/12/2020 12:33:Maira Raman RN) 51b. Weight at Delivery (lbs): 220 (06/15/2020 18:43:QS system process) Infections Present/Treated 53a. Gonorrhea: No (05/12/2020 12:33:ALEX Jin) Results this Hospital Visit : Negative (05/12/2020 12:33:Yoli Luu RN) 53b. Syphilis: No (05/12/2020 12:33:ALEX Jin) 53c. Chlamydia: No (05/12/2020 12:33:ALEX Jin) Results this Hospital Visit: Negative (05/12/2020 12:33:Yoli Luu RN) 53d. Hepatitis B: No (05/12/2020 12:33:ALEX Jin) Results this Hospital Visit: Negative (05/12/2020 12:33:Yoli Luu RN) 53h. Mother Tested for HBsAG: Yes (05/12/2020 12:33:Maira Raman RN) 53j. Test Result: Negative (05/12/2020 12:33:Yoli Luu RN) Obstetric Procedures 54a, b, c. Obstetric Procedures: Ultrasound (05/12/2020 12:33:Herminia Bellavance, RNC) Cigarette Smoking Cigarette Smoking: Former Smoker. [id number] (05/12/2020 12:33:Maira Raman RN) 55a. 3 Months Before Preg - Ci (05/12/2020 12:33:Maira Raman RN) 55b. 1st Trimester of Preg- Ci (05/12/2020 12:33:Maira Raman RN) 55c. 2nd Trimester of Preg- Ci (05/12/2020 12:33:Maira Raman RN) 55d. 3rd Trimester of Preg- Ci (05/12/2020 12:33:Maira Raman RN) Onset of Labor 56a. PROM >12 Hrs: 0.03 (05/12/2020 12:33:QS system process) 57a. Induction of Labor: N/A (05/12/2020 12:33:Maira Raman RN) 57c. Non-Vertex Presentation A: Vertex (05/12/2020 12:33:Maira Raman RN) 57d. Steroids - Lung Mat: None (05/12/2020 12:33:Maira Raman RN) 57d. Steroids - Lung Mat: Not Applicable (05/12/2020 12:33:Maira Raman RN) 57f. Mat [place] or Temp >100.4: 98.2 (05/12/2020 12:33:Maira Raman RN) 57g. Moderate/Heavy Meconium: Clear (05/12/2020 12:33:Maira Raman RN) 57h. Intolerance of Labor: Nonreassuring Status (05/12/2020 12:33:Maira Raman RN) : Repeat Elective (05/12/2020 12:33:Maira Raman RN) 57i. Epidural/Spinal Anesthesia: None (05/12/2020 12:33:Maira Raman RN) Method of Delivery 58a. Forceps - Unsuccessful A: N/A (05/12/2020 12:33:Maira Raman RN) 58b. Vacuum - Unsuccessful A: N/A (05/12/2020 12:33:Maira Raman RN) 58c. Presentation at 58c. Presentation at - A : Vertex (05/12/2020 12:33:Maira Raman RN) 58c. Presentation at - A : N/A (05/12/2020 12:33:Maira Raman RN) 58c. Presentation at - A : Cephalic (06/16/2020 00:31:Herminia Crews [facility]) Final Route and Method of Del 58d. Baby A Route/Delivery: (05/12/2020 12:33:JEANE Arcos) 58e. Trial of Labor Attempted: No (05/12/2020 12:33:Maira Raman RN) 58e. Trial of Labor Attempted A: N/A (05/12/2020 12:33:Hill Stout RN) 58e. Trial of Labor Attempted B: N/A (05/12/2020 12:33:Maira Raman RN) Maternal Morbidity 59b. 3rd or 4th Degree Lacs: None (05/12/2020 12:33:Maira Raman RN) Birthweight Baby A: 2510 (05/12/2020 12:33:Latasha Recio RN) 60a. Pounds : 5 (05/12/2020 12:33:QS system process) 60b. Ounces: 9 (05/12/2020 12:33:QS system process) 61. GA at Delivery Baby A: 38.1 (05/12/2020 12:33:Angelito Adams HEALTH SAFETY COORDINATOR) : Early Term- 37- 38.6 Weeks (05/12/2020 12:33:QS system process) 62a. 5 Minute Baby A: 9 (05/12/2020 12:33:QS system process)
--- NOTE | 2020-06-16 05:28 | Delivery Summary ---
Del Sum A-C Datetime Report Generated by CPN: 06/16/2020 05:28 DELIVERY PERSONNEL DELIVERY PERSONNEL: [id number] Delivery Doctor:: Santa Corbin MD UPSTREAM BIOMANUFACTURING TECHNICIAN:: Meliza Chambers CRNA Cathode Washer:: Maira Raman RN Nursery Nurse:: Latasha Recio RN Vehicle Modification Technician/LABORER CONSTRUCTION OR LEAK GANG: [facility] [place] Vehicle Modification Technician/LABORER CONSTRUCTION OR LEAK GANG: Valdo Mejias, SAP PI DEVELOPER MATERNAL INFORMATION Delivery Anesthesia: Spinal Medications After Delivery: Pitocin Bolus-Please Comment Delivery QBL: 360 Maternal Complications: None LABOR SUMMARY EDC: 06/29/2020 00:00 No. Babies in Womb: 1 Attempted: No Labor Anesthesia: None LABOR INFORMATION Reason for Induction: Not Applicable Oxytocin: N/A Group B Beta Strep: positive Antibiotics # of Doses: 0 Steroids Given: None Reason Steroids Not Administered: Not Applicable MEMBRANES Membranes Rupture Method: Artificial Rupture of Membranes: 06/16/2020 03:14 Length of Rupture (hr): 0.03 Amniotic Fluid Color: Clear Amniotic Fluid Amount: Small Amniotic Fluid Odor: Normal STAGES OF LABOR Stage 3 hr: 0 Stage 3 min: 1 VAGINAL DELIVERY Episiotomy: None Laceration #1: None Laceration Extension #1: N/A Laceration Repair: Not Applicable Sponge Count Correct: N/A Sharps Count Correct: N/A CSECTION DELIVERY Primary Indication: Nonreassuring Status Secondary Indication: Repeat Elective CSection Urgency: Non-Scheduled CSection Incidence: Repeat Labor: No Labor Elective: N/A CSection Incision: Lower Uterine Transverse BABY A INFORMATION Delivery Date/Time: 06/16/2020 03:16 Method of Delivery: Nurse Controlled Delivery: No Born in Route : No : N/A Forceps: N/A Vacuum Extraction: N/A Shoulder Dystocia : No PRESENTATION/POSITION BABY A Presentation: Cephalic Cephalic Presentation: Vertex Breech Presentation: N/A PLACENTA INFORMATION BABY A Placenta Delivery Time : 06/16/2020 03:17 Placenta Method of Delivery: Manual Removal Placenta Status: Delivered SCORES BABY A Heart Rate 1 min: >100 bpm Resp Effort 1 min: Good Cry Reflex Irritability 1 min: Cough or Sneeze or Pulls Away Muscle Tone 1 min: Active Motion Color 1 min: Blue/Pale Resuscitation Effort 1 min: Tactile Stimulation SCORE 1 MIN: 8 Heart Rate 5 min: >100 bpm Resp Effort 5 min: Good Cry Reflex Irritability 5 min: Cough or Sneeze or Pulls Away Muscle Tone 5 min: Active Motion Color 5 min: Body [place], Extremities Blue SCORE 5 MIN: 9 INFORMATION BABY A Gestational Age at Delivery: 38.1 Gestational Status: Early Term- 37- 38.6 Weeks Outcome : Liveborn Infant Condition : Stable Sex: Female IDENTIFICATION BABY A Verification Date/Time: 06/16/2020 03:16 ID Band Number: [id number] Mother's Name Verified: Yes Infant RN Verifying Infant: Kendra Raman, RN/S. Tabitha, RN WEIGHT/LENGTH BABY A Infant Birthweight (gm): 2510 Infant Weight (lb): 5 Infant Weight (oz): 9 Infant Length (in): 18.75 Length (cm): 47.63 CORD INFORMATION BABY A No. Cord Vessels: 3 Nuchal Cord : N/A Cord Blood Taken: Yes-For Storage (Mom's Blood type +) BABY B INFORMATION : N/A
[2020-06-16] MEDS: KETOROLAC TROMETHAMINE INJ/PF 30 MG/1 ML SDV IV SCH ×3 (06:30→21:00)
[2020-06-16] MEDS: OXYCODONE-ACETAMINOPHEN 5-325 MG TABLET PO PRN ×3 (08:18→20:51)
[2020-06-16] MEDS: DOCUSATE SODIUM 100 MG CAPSULE PO SCH ×2 (10:00→18:10)
[2020-06-16] MEDS: PRENATAL VITAMIN W DHA CAPSULE PO SCH (10:00)
[2020-06-16] MEDS ORDERED: LIDOCAINE 2% INJ-PF (20 MG/ML) 2 ML AMPUL ONE (10:22)
[2020-06-16] MEDS ORDERED: KETOROLAC TROMETHAMINE 60 MG/2 ML SDV ONE (10:22)
[2020-06-16] MEDS ORDERED: PHENYLEPHRINE HCL INJ/PF 10 MG/1 ML SDV ONE (10:22)
[2020-06-16] MEDS ORDERED: ONDANSETRON HCL INJ/PF 4 MG/2 ML SDV ONE (10:22)
[2020-06-16] MEDS: MORPHINE SULFATE 10 MG/ML INJ IV PRN ×2 (11:17→15:38)
--- NOTE | 2020-06-16 11:19 | PDOC PROGRESS REPORT ---
Subjective-OB Progress Note for:: 06/16/20 Subjective: Doing well, hsb holding baby, pt sitting up, taking regular diet well, no flatus, not feeling gas, still has leiva, plans to bottle feed Physical Exam (OB) Vital Signs: Temp Pulse Resp BP Pulse Ox 97.8 F 87 17 129/67 H 99 06/16/20 10:00 06/16/20 09:00 06/16/20 09:00 06/16/20 09:00 06/16/20 09:00 Intake & Output 06/15/20 06/16/20 06/17/20 06:59 06:59 06:59 Intake Total 1050 Balance 1050 Weight 99.8 kg - PIH/Pre-Eclampsia DTR's: 2 + Clonus: Negative Headache: Absent Epigastric Pain: No Visual Changes: No - Dressing Removed: No - opsite Incision: Well Approximated - Maternal Morbidity 59. Maternal Morbidity (serious complications experinced by the mother associated with labor and delivery: None of the above - Lochia Lochia Amount: Small 10-25 ml Lochia Color: Rubra/Red - Abdomen Description: Soft Hernia Present: No Fundal Description: Firm, Midline Fundal Height: u/u - u/2 Objective-Diagnostic Laboratory: 06/16/20 01:50 06/15/20 06/16/20 06/16/20 18:05 01:50 01:50 WBC 10.9 H RBC 3.87 Hgb 12.1 Hct 34.7 L MCV 90 MCH 31.2 MCHC 34.9 RDW 14.0 Plt Count 208 Seg Neutrophils % 66.7 Urine Color YELLOW Urine Appearance SLIGHTLY-CLOUDY Urine pH 6.0 Ur Specific [place] 1.021 Urine Protein 30 H Urine Glucose (UA) NEGATIVE Urine Ketones NEGATIVE Urine Blood NEGATIVE Urine Nitrite NEGATIVE Ur Leukocyte Esterase NEGATIVE Blood Type A POSITIVE Antibody Screen NEGATIVE Assessment and Plan(PN) - Assessment and Plan (1) delivery delivered Is this a current diagnosis for this admission?: Yes - Time Spent with Patient Time with patient: Less than 15 minutes Medications reviewed and adjusted accordingly: Yes - Disposition Anticipated Discharge Disposition: Home, Self Care Anticipated Discharge Timeframe: within 24 hours - OOB later and ren leiva
[2020-06-17] MEDS: KETOROLAC TROMETHAMINE INJ/PF 30 MG/1 ML SDV IV SCH (05:24)
[2020-06-17] MEDS: OXYCODONE-ACETAMINOPHEN 5-325 MG TABLET PO PRN ×3 (07:57→21:21)
[2020-06-17] MEDS: PRENATAL VITAMIN W DHA CAPSULE PO SCH (09:19)
[2020-06-17] MEDS: DOCUSATE SODIUM 100 MG CAPSULE PO SCH ×2 (09:19→18:39)
[2020-06-17 11:27] LABS: HEMATOCRIT 28.4 % (36.0-47.0); MEAN CORPUSCULAR HEMOGLOBIN 29.9 pg (27.0-33.4); MEAN CORPUSCULAR HGB CONC 35.2 g/dL (32.0-36.0); PLATELET COUNT 163 10^3/uL (150-450); RED BLOOD COUNT 3.34 10^6/uL (3.72-5.28); RED CELL DISTRIBUTION WIDTH 14.1 % (11.5-14.0)
[2020-06-17] MEDS ORDERED: IBUPROFEN 800 MG TABLET PO PRN (12:00)
[2020-06-17 12:17] LABS: MEAN CORPUSCULAR VOLUME 85 fl (80-97)
--- NOTE | 2020-06-17 12:51 | PDOC PROGRESS REPORT ---
Subjective-OB Progress Note for:: 06/17/20 Subjective: Pt doing well, no concerns. She is ambulatory, reports +flatus, bleeding normal and is bonding w baby. Physical Exam (OB) Vital Signs: Temp Pulse Resp BP Pulse Ox 97.7 F 76 16 123/81 96 06/17/20 11:39 06/17/20 11:39 06/17/20 11:39 06/17/20 11:39 06/17/20 11:39 Intake & Output 06/16/20 06/17/20 06/18/20 06:59 06:59 06:59 Intake Total 2049 Output Total 200 Balance 1850 Weight 99.8 kg - PIH/Pre-Eclampsia DTR's: 1 + Clonus: Negative Headache: Absent Epigastric Pain: No Visual Changes: No - Dressing Removed: No Incision: Dressing, Draining Closure Type: opsite Note: OP Site is 50% saturated and needs to be changed. - Maternal Morbidity 59. Maternal Morbidity (serious complications experinced by the mother associated with labor and delivery: None of the above - Lochia Lochia Amount: Scant < 10 ml Lochia Color: Rubra/Red - Abdomen Description: Soft Hernia Present: No Fundal Description: Firm, Midline Fundal Height: u/u - u/2 Objective-Diagnostic Laboratory: 06/17/20 11:01 06/17/20 06/17/20 06:57 11:01 WBC Cancelled 10.0 RBC Cancelled 3.34 L Hgb Cancelled 10.0 L D Hct Cancelled 28.4 L MCV Cancelled 85 D MCH Cancelled 29.9 MCHC Cancelled 35.2 RDW Cancelled 14.1 H Plt Count Cancelled 163 Assessment and Plan(PN) - Assessment and Plan (1) delivery delivered Is this a current diagnosis for this admission?: Yes - Time Spent with Patient Time with patient: Less than 15 minutes Medications reviewed and adjusted accordingly: Yes - Disposition Anticipated Discharge Disposition: Home, Self Care Anticipated Discharge Timeframe: within 24 hours
[2020-06-18] MEDS: OXYCODONE-ACETAMINOPHEN 5-325 MG TABLET PO PRN ×3 (02:30→14:55)
[2020-06-18] MEDS: DOCUSATE SODIUM 100 MG CAPSULE PO SCH (09:28)
[2020-06-18] MEDS: PRENATAL VITAMIN W DHA CAPSULE PO SCH (09:28)
[2020-06-18 11:47] VITALS: BP 133/84
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
[2020-06-21] MEDS ORDERED: IBUPROFEN 800 MG TABLET PO SCH
== END 2020-06-18 16:50 | disposition home or self-care (01) | DRG 788 ==
LOC: LC 17:55 → LR 06-16 01:45 → 2S 06-16 05:55
PROVIDERS: ADMIT Obstetrics & Gynecology; ATTEND Obstetrics & Gynecology
PROC: 10D00Z1 Extraction of Products of Conception, Low, Open Approach (ICD-10-PCS; principal; 2020-06-16)
DX: O76 Abnormality in fetal heart rate and rhythm complicating labor and delivery (principal); V49.9XXA Car occupant (driver) (passenger) injured in unspecified traffic accident, initial encounter; Y92.9 Unspecified place or not applicable; O99.824 Streptococcus B carrier state complicating childbirth; Z3A.38 38 weeks gestation of pregnancy; Z37.0 Single live birth
CPT/HCPCS: 1961; 36415; 59025; 80307; 81005; 85025; 85027; 86592; 86850; 86900; 86901; 94760; 94799; J0131; J0690; J1170; J1885; J2270; J2370; J2405; J2590; J3490